=== PATIENT | female | born 1965 | race Caucasian/White ===

== ENCOUNTER 2023-04-02 06:00 | Day surgery (SDC) | payer BC ==
[2023-04-01 10:19] VITALS: BMI 24.5
[2023-04-02] MEDS ORDERED: Bupivacaine PF 0.5% 30 ML VIAL ONE (06:21)
[2023-04-02] MEDS ORDERED: Thrombin 5000 UNITS/5 ML VIAL ONE (06:21)
[2023-04-02] MEDS ORDERED: EPINEPHrine 1 MG/ML AMP ONE (06:21)
[2023-04-02] MEDS ORDERED: fentaNYL PF 100 MCG/2 ML SYRINGE ONE (06:27)
[2023-04-02] MEDS ORDERED: Albumin 5% 500 ML ONE (06:27)
[2023-04-02] MEDS ORDERED: Sodium Chloride 0.9% 100 ML ONE ×2 (06:52→10:20)
[2023-04-02] MEDS ORDERED: CEFAZOLIN 2 GM VIAL ONE ×2 (06:52→10:19)
[2023-04-02] MEDS ORDERED: Rocuronium Bromide 10 MG/ML (10ML VIAL) ONE (07:15)
[2023-04-02] MEDS ORDERED: Ondansetron PF 4 MG/2 ML Vial ONE ×2 (07:15→08:18)
[2023-04-02] MEDS ORDERED: Ketorolac Tromethamine 30 MG/ML VIAL ONE (07:15)
[2023-04-02] MEDS ORDERED: diphenhydrAMINE 50 MG/ML VIAL ONE (07:15)
[2023-04-02] MEDS ORDERED: Succinylcholine 200 MG/10 ml SYRINGE FS ONE (07:15)
[2023-04-02] MEDS ORDERED: PROPOFOL 200 MG/20 ML VIAL ONE (07:15)
[2023-04-02] MEDS ORDERED: Lidocaine 1% PF 5 ML VIAL ONE (07:15)
[2023-04-02] MEDS ORDERED: Dexamethasone 20 MG/5 ML VIAL ONE (07:15)
[2023-04-02] MEDS ORDERED: Cyclobenzaprine 10 MG TAB ONE (09:29)
[2023-04-02] MEDS ORDERED: traMADol HCl 50 MG TAB ONE (09:30)
== END 2023-04-02 11:00 | disposition home or self-care (01) ==
LOC: SDC 06:00
PROVIDERS: ATTEND Neurological Surgery
PROC: 01NB0ZZ Release Lumbar Nerve, Open Approach (ICD-10-PCS; principal; 2023-04-02)
DX: M54.16 Radiculopathy, lumbar region (principal); F32.A Depression, unspecified; G89.29 Other chronic pain; J30.2 Other seasonal allergic rhinitis; Z98.890 Other specified postprocedural states; Z90.710 Acquired absence of both cervix and uterus; Z90.13 Acquired absence of bilateral breasts and nipples; Z90.722 Acquired absence of ovaries, bilateral; Z79.899 Other long term (current) drug therapy; Z88.8 Allergy status to other drugs, medicaments and biological substances; Z88.5 Allergy status to narcotic agent; Z91.018 Allergy to other foods
CPT/HCPCS: J0171; J1100; J1200; J1885; J2405; J2704; J3490; P9045; S0020

== ENCOUNTER 2023-09-01 09:00 | Outpatient (CLI) | payer BC ==
[2023-09-01] MEDS ORDERED: Iopamidol 370 76% 100 ML VIAL ONE (10:03)
== END 2023-09-01 09:01 | disposition home or self-care (01) ==
LOC: NM 09:00
PROVIDERS: ATTEND Internal Medicine Hematology & Oncology
DX: C50.812 Malignant neoplasm of overlapping sites of left female breast (principal); N94.89 Other specified conditions associated with female genital organs and menstrual cycle
CPT/HCPCS: 71260; 74177; 78306; 82565; A9503; Q9967